=== PATIENT | male | born 1995 | race Caucasian/White ===

== ENCOUNTER 2016-09-07 20:23 | Emergency (ER) | payer OTHER ==
[~2016-09-07] VITALS: Ht 177.8 cm; Wt 99.1 kg
[2016-09-07 20:28] VITALS: BP 136/70; TEMP 36.8; Ht 177.8 cm; Wt 99.1 kg
[2016-09-07] MEDS ORDERED: MULT-506 PO (20:56)
[2016-09-07] MEDS ORDERED: CETI10TA84 PO (20:56)
--- NOTE | 2016-09-07 22:06 | DIAGNOSTIC IMAGING REPORT ---
LEFT KNEE 3 VIEWS CLINICAL HISTORY: L lateral knee pain trauma. Pain. COMPARISON: None. DISCUSSION: The bones and joint spaces appear intact. There is no evidence of fracture, dislocation or bony disease. There is no evidence for soft tissue swelling. IMPRESSION: Negative study. Electronically signed by: Enrrique Jenkins M.D. 09/07/2016 10:05 PM Dictated Date/Time: 09/07/2016 10:04 PM
[2016-09-07 23:01] VITALS: PULSE 79; O2SAT 99
--- NOTE | 2016-09-09 01:49 | EMERGENCY ROOM VISIT NOTE ---
ED Visit Note First contact with patient: 21:24 Chief Complaint: Left knee pain. History of Present Illness: Mr. Joseph is a 21-year-old white male who is brought into the ED via wheelchair complaining of left knee pain. Patient reports approximately one hour ago he was playing soccer. He reports he was attempting to take the ball away from another player and slid on the ground and hyperflexed his left knee. He reports since the injury he has been having knee pain over the lateral and posterior lateral aspect of the knee and he has not been able to completely extend his knee because of the pain. Currently he has difficult time describing his discomfort. On palpation the pain is located over the posterior tibia over the lateral border. He rates his discomfort 2/10 at rest and flexed. His pain worsens when he extends his knee and minimally with palpation. He has not taken any medications for pain prior to arrival at the hospital. He denies any associated symptoms including hip pain, 5 pain, lower leg pain, ankle pain, foot pain, leg weakness/numbness/ tingling. He denies any previous significant injuries or surgeries to the knee. Review of Systems: As noted above in history of present illness. Past Medical History: Status post tonsillectomy. Current Medications: Multivitamins, Zyrtec. Allergies to Medications: Patient denies. Social History: Patient is currently University student; he feels safe in his home environment; he denies tobacco and alcohol use. Physical Examination: Vital Signs: Date Time Temp Pulse Resp B/P Pulse Ox O2 Delivery O2 Flow Rate FiO2 09/07/16 23:01 79 18 99 Room Air 09/07/16 20:28 36.8 82 18 136/70 95 Room Air GENERAL: 21-year-old male in mild to moderate distress due to pain, nontoxic- appearing, afebrile and hemodynamically stable. NEUROLOGICAL: Awake, alert and oriented to person, place and time. Answering questions appropriately and following commands. SKIN: Warm, dry and pink. No soft tissue trauma noted. LEFT LOWER EXTREMITY: Patient is found with his knee in approximately 30 of flexion. There is no gross bony deformities. There is no shortening around rotation. Patient has no tenderness over the hip or throughout the thigh. There is mild tenderness over the posterior aspect of the knee over the lateral border of the tibia. There is no tenderness over the joint lines or the tendinous attachment of the hamstrings or quadriceps. Because he can only keep his knee in flexion I do not appreciate any joint effusion. I was able to slightly straighten them out and I did not appreciate any laxity of the collateral or cruciate ligaments. Was unable to perform a Michael's test due to pain. Throughout the lower leg is no tenderness over the tibia or fibula distal to the knee. He had full range of motion in plantar flexion and dorsiflexion of the ankle and flexion and extension of all toes. Distal pulses are intact and light sensation throughout the lower portion of the leg is intact. ED Course: Patient is assessed as noted above. Patient is given ice for pain and comfort; he refused pain medications. Left Knee X-Rays: Were read by myself and the radiologist showing no acute fractures or dislocations. No evidence of soft tissue swelling or joint effusion. Patient was placed in a knee immobilizer and on nonweightbearing crutches. Patient was educated about tonight's findings and instructed on his treatment plan; he verbalizes understanding and agreement with this plan. Clinical Impression: Left knee pain. Disposition: Patient discharged home in stable condition; prior to departure he was reassessed and subjectively reported he was pain-free. Plan: Comfort measures were discussed with the patient including rest, ice, knee immobilizer and crutch use and alternating ibuprofen and acetaminophen. Patient was encouraged to follow-up with orthopedics if no better in 5-6 days. Patient was encouraged return the ED for worsening/uncontrolled pain, uncontrolled swelling, leg weakness/numbness/tingling or any new/concerning symptoms.
== END 2016-09-07 23:01 | disposition home or self-care (01) ==
LOC: C.EDB 20:26 → C.EDD 23:01
DX: M25.562 Pain in left knee (principal); W01.0XXA Fall on same level from slipping, tripping and stumbling without subsequent striking against object, initial encounter; Y92.322 Soccer field as the place of occurrence of the external cause; Y93.66 Activity, soccer